=== PATIENT | female | born 1990 | race Two or more races ===

== ENCOUNTER 2019-06-09 20:18 | Emergency (ER) | payer OTHER ==
[~2019-06-09] VITALS: Ht 157.5 cm; Wt 59.1 kg
[2019-06-09 22:44] VITALS: BP 114/67
== END 2019-06-09 22:44 | disposition home or self-care (01) ==
LOC: EMS 20:20
DX: F41.9 Anxiety disorder, unspecified (principal); F10.10 Alcohol abuse, uncomplicated; F14.10 Cocaine abuse, uncomplicated

== ENCOUNTER 2020-03-09 06:14 | Emergency (ER) | payer OTHER ==
[~2020-03-09] VITALS: Ht 154.9 cm; Wt 135.0 kg
[2020-03-09 06:43] VITALS: BP 101/68
== END 2020-03-09 07:27 | disposition home or self-care (01) ==
LOC: EMS 06:15
DX: F10.129 Alcohol abuse with intoxication, unspecified (principal)
CPT/HCPCS: 99283; Z7502